=== PATIENT | male | born 1970 | race Caucasian/White ===

== ENCOUNTER 2017-01-22 14:22 | Emergency (ER) | payer OTHER ==
[~2017-01-22] VITALS: Ht 177.8 cm; Wt 81.7 kg
[~2017-01-22 14:22] MED LIST: KEFLEX500 MG PO; LEVAQUIN750 MG PO; TAMIFLU75 MG PO; ZOFRAN ODT4 MG PO
[2017-01-22 15:09] VITALS: BP 128/77
== END 2017-01-22 15:10 | disposition home or self-care (01) ==
LOC: EME 14:22 → EXP 14:22
DX: L60.0 Ingrowing nail (principal); L03.031 Cellulitis of right toe
CPT/HCPCS: 99281; 99282